=== PATIENT | female | born 1975 | race Caucasian/White ===

== ENCOUNTER 2017-01-09 15:18 | Emergency (ER) | payer MEDICAID ==
[~2017-01-09] VITALS: Ht 154.9 cm; Wt 79.0 kg
[~2017-01-09 15:18] MED LIST: PRED20TA PO
[2017-01-09 15:29] VITALS: Ht 154.9 cm; Wt 79.0 kg
--- NOTE | 2017-01-09 15:56 | ERD ---
ER Documentation Chief Complaint Chief Complaint right ear pain, headache and dizziness started yesterday HPI 41y/o female patient with no significant medical history, presents to the emergency department c/o sudden onset of right ear pain, constant, that started 2 days ago. The pain is sharp, rated 6/10, without radiation. The symptoms are probably caused by a nail scratch while cleaning her ear and are associated with headache and mild dizziness yesterday. Denies fever, chills, N/V/D. No recent history of previous episodes. Treatment attempted: None. History was given by patient. ROS SYSTEMIC symptoms: no fever, chills, no night sweats, no weight loss EYE symptoms: No blurred vision, no eye discharge OTOLARYNGEAL symptoms: No hearing loss. + ear pain, + sore throat CARDIOVASCULAR symptoms: No chest pain or discomfort, no palpitations. PULMONARY symptoms: No dyspnea, no cough, no wheezing. GASTROINTESTINAL symptoms: No abdominal pain, no nausea, no vomiting, no diarrhea MUSCULOSKELETAL symptoms: No arthralgias, no muscle aches. NEUROLOGY symptoms: No confusion, no syncope, no numbness or tingling. SKIN: No rashes Medications Home Meds Active Scripts Ibuprofen* (Ibuprofen*) 600 Mg Tablet, 600 MG PO Q6H Y for PAIN AND/OR INFLAMMATION for 5 Days, #20 TAB Prov:JESSEE MACKAY MD 01/09/17 Meclizine Hcl* (Antivert*) 12.5 Mg Tab, 12.5 MG PO Q6H Y for DIZZINESS, #20 TAB Prov:JESSEE MACKAY MD 01/09/17 Neomycin/Polymyxin/Hydrocort* (Cortisporin* Otic) 10 Ml Susp, 4 DROP RIGHT EAR QID for 7 Days, EA Prov:JESSEE MACKAY MD 01/09/17 Prednisone* (Prednisone*) 20 Mg Tab, 60 MG PO DAILY for 5 Days, TAB Prov:VICTORINA BABIN NP 01/24/15 Allergies Allergies: Coded Allergies: No Known Allergy (Unverified , 08/17/12) PMhx/Soc History of Surgery: Yes (GALLBLADDER) Anesthesia Reaction: No Physical Exam Vitals Vital Signs Date Time Temp Pulse Resp B/P Pulse Ox O2 Delivery O2 Flow Rate FiO2 01/09/17 15:29 98.4 65 19 136/80 99 Physical Exam Patient is in no acute distress, vital signs stable. Alert and fully oriented. EYES: PERRLA, EOMI, Sclera and conjunctiva appear normal. EARS: Right ear: Erythematous canal with edema and superficial abrasion. Tympanic membrane with mild erythema on the contralateral ear normal THROAT: Erythematous oropharynx NECK: Supple, No lymphadenopathy. Full ROM without pain or tenderness. HEART: RRR, no rubs, murmurs, clicks or gallops. LUNGS: Clear to auscultation. ABDOMEN: Soft, non-tender without masses or hepatosplenomegaly. EXTREMITIES: No edema bilaterally. BACK: Full ROM, no deformity, normal back exam NEURO: Cranial nerves grossly intact, no motor or sensory deficit Procedures/MDM 41y/o female patient unremarkable medical history, presents to the ED c/o right ear pain for 2 days. Vital signs stable, Physical exam revealed right ear with erythema and edema of the external canal. No evidence of perforation or effusion. Differential diagnosis include but not limited to: Infectious process : Otitis media/external, contact dermatitis, foreign body, tympanic membrane perforation cholesteatoma. Low suspicion for malignant otitis or mastoiditis.. Physical examination and clinical presentation consistent most likely with otitis externa. During the ED course the patient remained stable, no new complaints. Results and clinical impression discussed with patient who agrees with management. The patient is stable to be treated outpatient and will be discharged home with a Rx for Cortisporin, meclizine and ibuprofen , some side effects of prescribed medications (headache, rash, nausea, vomiting, diarrhea, drowsiness, habituation, bleeding, hypertension, interactions with other medications) were reviewed. The patient was instructed to follow up with the primary care provider in the next 48h. If symptoms persist, worsen or new symptoms develop, then patient should return to the ED immediately. Instructions explained and given directly by me to the patient in [place] with acknowledgment and demonstrated understanding., Disclaimer: Inadvertent spelling and grammatical errors are likely due to EHR/ dictation software use and do not reflect on the overall quality of patient care. Also, please note that the electronic time recorded on this note does not necessarily reflect the actual time of the patient encounter. Departure Diagnosis: Primary Impression: Right otitis externa Condition: Stable Additional Instructions: Jose de santiago por [facility] para [place] servicio. Esperamos que en [place] visita a la ikel de emergencia [place] problema medico haya sido solucionado y que se sienta mucho mejor. Para estar seguros que [place] mejoria sigue en proceso, le pedimos el favor de hacer joanie cameron de seguimiento medico con [place] doctor primario en los proximos 2-4 bowen. Lleve con usted estos documentos y las medicinas recetadas. Si jaquelin sintomas empeoran y no puede siena a [place] doctor, por favor regrese a kiel de emergencia. En halie que usted no tenga un mdico de atencin primaria: Llame al mdico o clnica comunitaria de referencia que aparece abajo angela las horas de consultorio para hacer joanie cameron para que le vean. CLINICAS: [facility] [phone] [facility] [phone] [facility] [phone] [place] [phone] [facility] [address] [place] [phone] [facility]. [phone] JESSEE THORNE MD Jan 09, 2017 15:56
[2017-01-09] MEDS ORDERED: NPH10OT RIGHT EAR (15:59)
[2017-01-09] MEDS ORDERED: MECL12.574 PO (15:59)
[2017-01-09] MEDS ORDERED: IBUP-1542 PO (15:59)
== END 2017-01-09 16:28 | disposition home or self-care (01) ==
LOC: FTE 15:18
DX: H60.91 Unspecified otitis externa, right ear (principal)
CPT/HCPCS: 99283